=== PATIENT | male | born 1990 | race Caucasian/White ===

== ENCOUNTER 2020-04-28 02:02 | Emergency (ER) | payer OTHER ==
[~2020-04-28] VITALS: Ht 180.3 cm; Wt 92.0 kg
[~2020-04-28 02:02] MED LIST: CEPH-376 PO; DEXT10TA7 PO; HYDR4TAB48 PO; IBUP100T6 PO; [UNRECOGNIZED DRUG - REMARK]
[2020-04-28] MEDS ORDERED: LIDOCAINE 1%-EPI 1:100K, 20ML INFIL ONE (02:30)
[2020-04-28] MEDS ORDERED: LIDOCAINE-MPF 1%, 5ML ONE (03:12)
[2020-04-28 03:50] VITALS: BP 112/72
== END 2020-04-28 04:16 | disposition home or self-care (01) ==
LOC: ED 02:33
DX: S01.01XA Laceration without foreign body of scalp, initial encounter (principal); G89.11 Acute pain due to trauma; F17.210 Nicotine dependence, cigarettes, uncomplicated; F12.10 Cannabis abuse, uncomplicated; F10.10 Alcohol abuse, uncomplicated; Y90.9 Presence of alcohol in blood, level not specified; W22.8XXA Striking against or struck by other objects, initial encounter; Y93.89 Activity, other specified; Y92.488 Other paved roadways as the place of occurrence of the external cause; Y99.8 Other external cause status
CPT/HCPCS: 12035; 70450; 99284; 99285

== ENCOUNTER 2020-05-15 15:44 | Emergency (ER) | payer SELFPAY ==
[~2020-05-15] VITALS: Ht 180.3 cm; Wt 89.8 kg
[2020-05-15 15:53] VITALS: BP 117/66
== END 2020-05-15 17:21 | disposition home or self-care (01) ==
LOC: ED 17:00
DX: S01.01XD Laceration without foreign body of scalp, subsequent encounter (principal); Z48.02 Encounter for removal of sutures; X58.XXXD Exposure to other specified factors, subsequent encounter
CPT/HCPCS: 99281